=== PATIENT | male | born 1955 | race Caucasian/White ===

== ENCOUNTER 2019-05-15 16:56 | Inpatient (IN) | payer BC ==
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
[2019-05-15 18:54] LABS: #Basophils 0.1 thou/uL (0.0-0.2); #Eosinphils 0.3 thou/uL (0.0-0.7); #Lymphocytes 1.4 thou/uL (1.20-3.40); #Monocytes 0.9 thou/uL (0.11-0.59); #Neutrophils 11.6 thou/uL (1.40-6.50); %Basophils 0.6 % (0.0-1.0); %Eosinophils 1.8 % (0.0-10.0); %Lymphocytes 10.1 % (21.0-51.0); %Neutrophils 81.6 % (42.0-75.0); Hemoglobin 14.7 g/dL (14.0-18.0); Mean Corpuscular HGB CONC 34.5 g/dL (32.0-36.0); Mean Corpuscular Hemoglobin 32.8 pg (27.0-31.0); Mean Corpuscular Volume 94.9 fL (78.0-98.0); Mean Platelet Volume 7.9 fL (7.4-10.4); Platelet Count 212 thou/uL (130-400); RBC Distribution Width 12.3 % (11.5-14.5); Red Blood Cell (RBC) Count 4.49 mill/uL (4.70-6.10); White Blood Cell (WBC) Count 14.2 thou/uL (4.8-10.8)
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
[2019-05-15 19:16] LABS: ALT (SGPT) 17 U/L (8-55); AST (SGOT) 17 U/L (5-34); Acetaminophen Less than 6.0 mcg/mL (10.0-30.0); Albumin 3.8 g/dL (3.4-4.8); Alcohol Less than 10 mg/dL (Less than 10); Alkaline Phosphatase 52 U/L (40-110); Anion Gap 11 mmol/L (10-20); BUN (Urea Nitrogen) 21 mg/dL (8.4-25.7); Bilirubin, Total 0.3 mg/dL (0.2-1.2); CK (CPK) 239 U/L (30-200); Calc. Creatinine Clearance 0 mL/min (70-130); Calcium 8.7 mg/dL (7.8-10.44); Carbon Dioxide 22 mmol/L (23-31); Chloride 103 mmol/L (98-107); Estimated GFR-MDRD 49; Globulin 2.7 g/dL (2.4-3.5); Glucose 104 mg/dL (80-115); Lipase 36 U/L (8-78); Protein, Total 6.5 g/dL (5.8-8.1); Salicylate Less than 8.0 mg/dL (15.0-30.0); Sodium 132 mmol/L (136-145)
[2019-05-15] MEDS ORDERED: Acetaminophen 500 MG TAB ONE (19:17)
[2019-05-15 19:55] LABS: CKMB 2.4 ng/mL (0-6.6)
[2019-05-15] MEDS ORDERED: Aspirin Chewable 81 MG TAB ONE ×2 (20:08)
[2019-05-15] MEDS ORDERED: Ondansetron PF 4 MG/2 ML Vial IVP PRN (21:27)
[2019-05-15] MEDS ORDERED: Ondansetron ODT 4 MG TAB SL PRN (21:27)
[2019-05-15] MEDS ORDERED: HYDROcodone/Acetaminophen 5/325 mg Tablet PO PRN ×2 (21:27)
[2019-05-15] MEDS ORDERED: Acetaminophen 325 MG TAB PO PRN (21:27)
[2019-05-15 21:40] VITALS: BMI 27.7
[2019-05-15 22:11] LABS: Troponin I 0.042 ng/mL (< 0.028)
[2019-05-16 01:14] LABS: Lactic Acid 0.6 mmol/L (0.5-2.2)
[2019-05-16] MEDS ORDERED: HYDROcodone/Acetaminophen 5/325 mg Tablet PO PRN (01:16)
[2019-05-16] MEDS ORDERED: Acetaminophen 650 MG Suppository PR PRN (01:16)
[2019-05-16] MEDS ORDERED: Ondansetron ODT 4 MG TAB PO PRN (01:16)
[2019-05-16] MEDS ORDERED: Ondansetron PF 4 MG/2 ML Vial IVP PRN (01:16)
[2019-05-16] MEDS ORDERED: Acetaminophen 325 MG TAB PO PRN (01:16)
[2019-05-16] MEDS ORDERED: Senokot S 8.6-50 MG TAB PO PRN (01:16)
[2019-05-16 01:24] LABS: Troponin I 0.038 ng/mL (< 0.028)
[2019-05-16] MEDS: Sodium Chloride 0.9% 1,000 ML IV SCH ×2 (01:35→15:50)
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
[2019-05-16 04:14] LABS: Amphetamine Not Detected (NotDetected); Barbiturates Screen Not Detected (NotDetected); Benzodiazepine Screen Not Detected (NotDetected); Cocaine Metabolite Screen Not Detected (NotDetected); Medtox Control Line Valid? VALID (VALID); Medtox Reader # READER 1; Methadone Not Detected (NotDetected); Methamphetamine Not Detected (NotDetected); Opiate Screen Not Detected (NotDetected); Oxycodone Screen Not Detected (NotDetected); Phencyclidine (PCP) Not Detected (NotDetected); THC/Cannabinoid Screen Not Detected (NotDetected); Tricyclic Screen Not Detected (NotDetected)
[2019-05-16 05:33] LABS: Bilirubin Negative (Negative); Blood, Urine Negative (Negative); Clarity Clear (Clear); Glucose, Urine (Dipstick) Normal (Negative); Leukocyte Negative Leu/uL (Negative); Nitrite Negative (Negative); Protein, Urine (Dipstick) Negative (Neg-Trace); RBC/HPF 0-3 HPF (0-3); Squamous Epithelial None Seen HPF (0-3); Urobilinogen Normal mg/dL (Less than 2); WBC/HPF 0-3 HPF (0-3)
[2019-05-16 05:47] LABS: Bacteria/HPF 1+ HPF (None Seen)
[2019-05-16 05:49] LABS: Urine Culture Reflex No No
[2019-05-16 06:19] LABS: #Basophils 0.1 thou/uL (0.0-0.2); #Eosinphils 0.4 thou/uL (0.0-0.7); #Lymphocytes 1.9 thou/uL (1.20-3.40); #Monocytes 0.7 thou/uL (0.11-0.59); #Neutrophils 6.7 thou/uL (1.40-6.50); %Basophils 0.8 % (0.0-1.0); %Eosinophils 3.7 % (0.0-10.0); %Lymphocytes 19.4 % (21.0-51.0); %Neutrophils 69.1 % (42.0-75.0); Hemoglobin 14.5 g/dL (14.0-18.0); Mean Corpuscular HGB CONC 33.6 g/dL (32.0-36.0); Mean Corpuscular Hemoglobin 32.8 pg (27.0-31.0); Mean Corpuscular Volume 97.6 fL (78.0-98.0); Mean Platelet Volume 8.3 fL (7.4-10.4); Platelet Count 222 thou/uL (130-400); RBC Distribution Width 12.4 % (11.5-14.5); Red Blood Cell (RBC) Count 4.42 mill/uL (4.70-6.10); White Blood Cell (WBC) Count 9.7 thou/uL (4.8-10.8)
[2019-05-16 06:37] LABS: Anion Gap 7 mmol/L (10-20); BUN (Urea Nitrogen) 18 mg/dL (8.4-25.7); Calc. Creatinine Clearance 69 mL/min (70-130); Calcium 8.5 mg/dL (7.8-10.44); Carbon Dioxide 26 mmol/L (23-31); Chloride 106 mmol/L (98-107); Estimated GFR-MDRD 57; Glucose 93 mg/dL (80-115); Potassium 4.4 mmol/L (3.5-5.1); Sodium 135 mmol/L (136-145)
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
[2019-05-16] MEDS: Metoprolol Tartrate 25 MG TAB PO SCH ×2 (08:39→20:35)
--- NOTE | 2019-05-16 08:40 | ULT ---
CAROTID DUPLEX SONOGRAM: HISTORY: Syncope. Vascular disease. FINDINGS: RIGHT: Scattered areas of plaque. Color and spectral Doppler evaluation, peak systolic velocity of 78 cm/s, and IC to CC ratio of 1.0 suggests no hemodynamically significant stenosis within the extracranial r ight ICA. Right vertebral artery not visualized. LEFT: Scattered plaque. Color and spectral Doppler evaluation, peak systolic velocity of 267 cm/s, and IC to CC ratio of 3.3 suggests stenosis within the mid left cervical ICA to be in the range of 70-99%. Antegrade flow within the vertebral artery. IMPRESSION: 1. Atherosclerosis. Elevated peak systolic velocities within the mid left cervical internal carotid artery suggestive of high-grade stenosis. Please consider conventional or CT arteriography for bett er characterization. 2. Nonvisualization right vertebral artery. POS: TPC
[2019-05-16] MEDS ORDERED: Aspirin 81 mg Enteric Coated Tablet PO SCH (09:00)
[2019-05-16] MEDS ORDERED: Famotidine/PF 20 mg/2ml Vial SLOW IVP SCH ×2 (09:00→21:00)
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
--- NOTE | 2019-05-16 11:39 | MRI ---
MRI Brain WO Con: 05/16/2019 1:13 AM CLINICAL HISTORY: Seizure, collapse. COMPARISON: Head CT previous day's referenced FINDINGS: Extra axial spaces: Normal in size and morphology for the patient's age. Acute infarction: None. Ventricular system: Normal in size and morphology for the patient's age. Basal cisterns: Normal. Cerebral parenchyma: Minimal chronic ischemic disease of the cerebral white matter. Midline shift: None. Cerebellum: Normal. Brainstem: Normal. Paranasal sinuses:Scattered, mild mucosal thickening. IMPRESSION:No acute intracranial abnormality.
[2019-05-16] MEDS ORDERED: ISOVUE-370 76%-LOCM 1 ML ONE (12:45)
[2019-05-16] MEDS: HYDROcodone/Acetaminophen 5/325 mg Tablet PO PRN (14:43)
[2019-05-16] MEDS: Lisinopril 20 MG TAB PO SCH (20:32)
[2019-05-16] MEDS: Famotidine 20 MG TAB PO SCH (20:35)
[2019-05-16] MEDS: Atorvastatin Calcium 20 MG TAB PO SCH (20:35)
[2019-05-17] MEDS: HYDROcodone/Acetaminophen 5/325 mg Tablet PO PRN ×2 (04:33→17:11)
[2019-05-17] MEDS: Famotidine 20 MG TAB PO SCH ×2 (09:21→20:34)
[2019-05-17] MEDS: Aspirin 325 MG TAB PO SCH (09:21)
--- NOTE | 2019-05-17 10:15 | CT ---
CTA NECK WITH CONTRAST: Date: 05/17/19 Multiplanar reconstruction and 3D postprocessing performed according to angio protocol. INDICATION: Assess for carotid stenosis. Follow-up from carotid Doppler study which revealed increased velocities in the left internal carotid artery. FINDINGS: There is soft plaque, along with calcified plaque, in the aortic arch, and there is soft plaque which involves the origin of the right innominate artery. This does produce stenosis at the origin of the innominate artery of greater than 50%, which does indicate hemodynamic significant stenosis by NASCET criteria. Both common carotid arteries are patent with mild soft plaque. No significant common carot id artery stenosis. On the right, there is soft plaque and calcified plaque at the right bulb extending into the proximal right internal carotid artery. This results in mild stenosis which does not appear to be hemodynamic ally significant by NASCET criteria. On the left, calcified plaque and soft plaque are seen at the left bulb. Above the bulb is a focal ar ea of high grade stenosis in the left internal carotid artery secondary to soft plaque. There is also evidence of slight ulcerated plaque at this location. The degree of stenosis is estimated at greater than 80% diameter by NASCET criteria. The vertebral arteries are patent. There is a dominant left vertebral. Soft tissues appear unremarkable. Degenerative changes in the cervical spine. Lung apices appear clear. IMPRESSION: 1. High grade stenosis in the left internal carotid artery just above its origin. 2. Hemodynamically significant stenosis at the origin of the innominate artery at the aortic arch. POS: OFF
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
[2019-05-17] MEDS: Lisinopril 20 MG TAB PO SCH (20:34)
[2019-05-17] MEDS: Atorvastatin Calcium 20 MG TAB PO SCH (20:34)
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
[2019-05-18] MEDS: Metoprolol Tartrate 25 MG TAB PO SCH (04:38)
[2019-05-18] MEDS ORDERED: Gentamicin 80 MG/2 ML VIAL ONE (06:36)
[2019-05-18] MEDS ORDERED: Lidocaine 1% (PF) 30 ML VIAL ONE (06:36)
[2019-05-18] MEDS ORDERED: CEFAZOLIN 1 GM VIAL ONE (06:36)
[2019-05-18] MEDS ORDERED: Midazolam HCl 2 mg/2 ml Vial ONE (07:18)
--- NOTE | 2019-05-18 09:12 | RAD ---
EXAM: Single view of the chest HISTORY: Status post pacemaker placement COMPARISON: 05/15/2019 FINDINGS: Single view of the chest shows a normal sized cardiomediastinal silhouette. The patient is status post sternotomy. There is a left subclavian pacemaker with its leads in the right atrium and ventricle. No pneumothorax is seen. There is no evidence of consolidation, mass, or pleural effu ayala. The bones are unremarkable. IMPRESSION: Status post pacemaker placement without evidence of complication.
[2019-05-18] MEDS: Famotidine 20 MG TAB PO SCH (10:34)
[2019-05-18] MEDS: Aspirin 325 MG TAB PO SCH (10:34)
--- NOTE | 2019-05-18 11:48 | PDOC.HOSPP ---
- Subjective Encounter Date: 05/18/19 Encounter Time: 11:46 Subjective: doing well, eager to go home. Discussed about no driving for atleast one month and cleared by the cardiology - Objective Vital Signs & Weight: Vital Signs (12 hours) Temp Pulse Resp BP Pulse Ox 05/18/19 09:40 95 05/18/19 08:39 98.3 F 61 16 128/65 96 05/18/19 04:00 98.2 F 60 16 104/61 96 05/17/19 23:52 98.5 F 50 L 16 105/68 95 Weight Weight 177 lb 4.8 oz I&O: 05/17/19 05/18/19 05/19/19 06:59 06:59 06:59 Intake Total 2619 960 Output Total 2300 Balance 319 960 Result Diagrams: 05/16/19 05:31 05/16/19 05:31 Hospitalist ROS - Medication Medications: Active Medications Generic Name Dose Route Start Last Admin Trade Name Freq PRN Reason Stop Dose Admin Acetaminophen 650 mg 05/16/19 01:16 05/17/19 20:34 Tylenol PO 650 mg Q4H PRN Administration Headache/Fever/Mild Pain (1-3) Hydrocodone Bitart/Acetaminophen 1 tab 05/16/19 01:16 05/16/19 08:39 [place] 5/325 PO 1 tab Q4H PRN Administration Moderate Pain (4-6) Hydrocodone Bitart/Acetaminophen 2 tab 05/16/19 01:16 05/17/19 17:11 [place] 5/325 PO 2 tab Q4H PRN Administration Severe Pain (7-10) Aspirin 325 mg 05/17/19 09:00 05/18/19 10:34 Aspirin PO 325 mg DAILY HERBERT Administration Atorvastatin Calcium 20 mg 05/16/19 21:00 05/17/19 20:34 Lipitor PO 20 mg HS HERBERT Administration Famotidine 20 mg 05/16/19 21:00 05/18/19 10:34 Pepcid PO 20 mg BID HERBERT Administration Lisinopril 20 mg 05/16/19 21:00 05/17/19 20:34 Zestril PO Not Given HS HERBERT Sodium Chloride 10 ml 05/17/19 21:00 05/18/19 10:39 Flush - Normal Saline IVF 10 ml Q12HR HERBERT Administration - Exam General Appearance: NAD, awake alert, ill appearing Eye: PERRL, anicteric sclera, scleral icterus Neck: supple, symmetric, no JVD, no thyromegaly, no lymphadenopathy, no carotid bruit, JVD Heart: RRR, no murmur, no gallops, no rubs, normal peripheral pulses, irregular , diminshed peripheral pulses, murmur present, II/IV, III/IV Respiratory: CTAB, no wheezes, no rales, no ronchi, normal chest expansion, no tachypnea, normal percussion, rales, rhonchi, tachypneic, wheezes Gastrointestinal: soft, non-tender, non-distended, normal bowel sounds, no palpable masses, no hepatomegaly, no splenomegaly, no bruit, no guarding, no rigidity, tender to palpation, distended, diminished bowl sounds, voluntary guarding Extremities: no cyanosis, no clubbing, no edema, 1+ LE edema, 2+ LE edema, clubbing Skin: normal turgor, no lesions, no rashes, tenting Hosp A/P (1) Syncope Code(s): R55 - SYNCOPE AND COLLAPSE Status: Acute - Plan restart metaprolol as pacemaker has been placed. nicotin patch. D/c home when vleared by cardiology.
[2019-05-18 12:14] VITALS: TEMP 97.8
--- NOTE | 2019-05-18 14:09 | CCL ---
CARDIOLOGY PROCEDURE NOTE PACEMAKER INSERTION: This is a 63-year-old gentleman with sick sinus syndrome and severe bradycardia and syncopal episodes . He was advised to undergo a dual chamber pacemaker insertion. He was taken to the cardiac flower shop laborer/designer, where he was prepped and draped in the usual sterile fashion. U sing a left subclavian approach, the pacemaker was easily inserted, without difficulties or complicat ions. The full dictated note can be found in the chart. He was given 1 mg of IV Versed for conscious sedation throughout the procedure and was monitored by a n independent observer present for heart rate, blood pressure, and O2 saturation, which remained stab le throughout the procedure. He was implanted with a dual chamber pacemaker from [employer], an Missy XT, with two screw-in leads, one in the atrium and one in the ventricle. The pacemaker was set with the upper rate at 140 and lowe r rate set at 60. There were no difficulties or complications encountered.
[2019-05-18 17:14] VITALS: BP 113/68
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
--- NOTE | 2019-05-18 20:38 | EKG ---
Test Reason : POST PACEMAKER INSER Blood Pressure : / mmHG Vent. Rate : 062 BPM Atrial Rate : 062 BPM P-R Int : 148 ms QRS Dur : 090 ms QT Int : 420 ms P-R-T Axes : 075 039 077 degrees QTc Int : 426 ms Normal sinus rhythm Normal ECG When compared with ECG of 15-MAY-2019 18:36, (Unconfirmed) No significant change was found Confirmed by SUNDAR DOUGLAS, . SFany ([id number]) on 05/18/2019 8:38:01 PM Referred By: SABA Confirmed By:DR. Jacque KWOK MD
[2019-05-19] MEDS ORDERED: Nicotine 21 MG PATCH TD SCH (09:00)
--- NOTE | 2019-05-19 09:27 | DIS ---
DATE OF ADMISSION: 05/15/2019 DATE OF DISCHARGE: 05/18/2019 DISCHARGE DIAGNOSES: Status post pacemaker, status post syncope, and symptomatic bradycardia. CONSULTANTS ON THE CASE: 1. Cardiology, Dr. Zepeda. 2. Ophthalmology, Dr. Velasquez. HOSPITAL COURSE: The patient has been hospitalized. The patient exhibited bradycardia 40, metoprolol was on hold, and we went ahead and consulted Cardiology, Dr. Zepeda, subsequently recommended pacemaker placement and it was replaced successfully on the morning of 05/18/2019. The patient tolerated the procedure very well and metoprolol was restarted. The patient also has been a smoker and we started nicotine patch as well. As the patient continued to improve, instantly, we found that the patient has a mild injury on the right eye. Ophthalmology consultation was obtained, Dr. Velasquez evaluated. Further recommendation as per Dr. Velasquez. The patient's condition has been improved, ambulating, and tolerating diet well. It has been concluded to transfer the patient to outpatient care to follow up with PCP and Dr. Zepeda. DISCHARGE INSTRUCTIONS: Discharge home. DIET: Cardiac diet. ACTIVITY: As tolerated. DISCHARGE MEDICATIONS: As per reconciliation sheet, and we added nicotine patch once a day for total 30. We counseled the patient to quit smoking and we strictly instructed not to drive until Cardiology clears, 30 days no driving. CONDITION: Discussed with the patient at length and spoke to the as well. Job ID: [id number]
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
--- NOTE | 2019-05-19 15:22 | EKG ---
Test Reason : Blood Pressure : / mmHG Vent. Rate : 077 BPM Atrial Rate : 077 BPM P-R Int : 144 ms QRS Dur : 090 ms QT Int : 388 ms P-R-T Axes : 071 020 069 degrees QTc Int : 439 ms Normal sinus rhythm Normal ECG Confirmed by CASEY DOUGLAS, ULISES ([id number]), telegraph editor CHLOÉ ARANA ([id number]) on 05/19/2019 3:22:04 PM Referred By: Confirmed By:ULISES PEÑA MD
== END 2019-05-18 18:09 | disposition home or self-care (01) | DRG 244 ==
LOC: ERS 16:56 → OBSVTOIN 19:48 → 2SW 19:48 → 2NO 05-17 20:29
PROVIDERS: ADMIT Family Medicine; ATTEND Family Medicine
PROC: 0JH606Z Insertion of Pacemaker, Dual Chamber into Chest Subcutaneous Tissue and Fascia, Open Approach (ICD-10-PCS; principal; 2019-05-18)
PROC: 02HK3JZ Insertion of Pacemaker Lead into Right Ventricle, Percutaneous Approach (ICD-10-PCS; 2019-05-18)
PROC: 02H63JZ Insertion of Pacemaker Lead into Right Atrium, Percutaneous Approach (ICD-10-PCS; 2019-05-18)
DX: R55 Syncope and collapse (principal); I65.22 Occlusion and stenosis of left carotid artery; I25.10 Atherosclerotic heart disease of native coronary artery without angina pectoris; E78.00 Pure hypercholesterolemia, unspecified; I10 Essential (primary) hypertension; S00.11XA Contusion of right eyelid and periocular area, initial encounter; F17.210 Nicotine dependence, cigarettes, uncomplicated; Z86.73 Personal history of transient ischemic attack (TIA), and cerebral infarction without residual deficits; Z79.899 Other long term (current) drug therapy; Z95.1 Presence of aortocoronary bypass graft; V49.40XA Driver injured in collision with unspecified motor vehicles in traffic accident, initial encounter
CPT/HCPCS: 33249; 36415; 70450; 70486; 70498; 70551; 71045; 71260; 72125; 80048; 80053; 80306; 80307; 81001; 82550; 82553; 83605; 83690; 83735; 83880; 84146; 84484; 85025; 93005; 93010; 93306; 93798; 93880; 96360; 99152; 99153; C1785; C1898; G0390; J0690; J1580; J2001; J2250; Q9966; S0028

== ENCOUNTER 2020-03-18 12:24 | Observation (INO) | payer SELFPAY ==
[2020-03-18 14:03] LABS: Troponin I Less than 0.010 ng/mL (< 0.028)
[2020-03-18] MEDS ORDERED: Acetaminophen 500 MG TAB ONE (14:51)
[2020-03-18 16:44] VITALS: BMI 25.8
[2020-03-18] MEDS ORDERED: Nitroglycerin 0.4 MG TAB (25 Tab Bottle) PO PRN (17:53)
[2020-03-18 18:59] LABS: Troponin I Less than 0.010 ng/mL (< 0.028)
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
[2020-03-18] MEDS ORDERED: Atorvastatin Calcium 20 MG TAB PO SCH (21:00)
[2020-03-18] MEDS ORDERED: Acetaminophen 325 MG TAB PO PRN (21:04)
[2020-03-18] MEDS ORDERED: Tamsulosin HCl 0.4 MG CAP PO SCH (21:30)
[2020-03-19 05:06] LABS: Cardiac Risk 4.9 (Less than 4.5)
[2020-03-19 08:31] LABS: #Basophils 0.1 thou/uL (0.0-0.2); #Eosinphils 0.4 thou/uL (0.0-0.7); #Lymphocytes 1.7 thou/uL (1.20-3.40); #Monocytes 0.6 thou/uL (0.11-0.59); #Neutrophils 9.4 thou/uL (1.40-6.50); %Basophils 0.5 % (0.0-1.0); %Lymphocytes 13.6 % (21.0-51.0); %Monocytes 5.2 % (0.0-10.0); %Neutrophils 77.6 % (42.0-75.0); Hemoglobin 14.1 g/dL (14.0-18.0); Mean Corpuscular HGB CONC 33.3 g/dL (32.0-36.0); Mean Corpuscular Hemoglobin 32.4 pg (27.0-31.0); Mean Corpuscular Volume 97.3 fL (78.0-98.0); Mean Platelet Volume 8.2 fL (7.4-10.4); Platelet Count 177 thou/uL (130-400); RBC Distribution Width 12.2 % (11.5-14.5); Red Blood Cell (RBC) Count 4.34 mill/uL (4.70-6.10); White Blood Cell (WBC) Count 12.1 thou/uL (4.8-10.8)
[2020-03-19 08:47] LABS: Anion Gap 11 mmol/L (10-20); BUN (Urea Nitrogen) 19 mg/dL (8.4-25.7); Calc. Creatinine Clearance 71 mL/min (70-130); Calcium 8.7 mg/dL (7.8-10.44); Carbon Dioxide 24 mmol/L (23-31); Chloride 105 mmol/L (98-107); Estimated GFR-MDRD 64; Glucose 88 mg/dL (80-115); Potassium 4.5 mmol/L (3.5-5.1); Sodium 135 mmol/L (136-145)
[2020-03-19] MEDS ORDERED: Aspirin 325 mg Enteric Coated Tablet PO SCH (09:00)
[2020-03-19] MEDS ORDERED: Enoxaparin Sodium 40 MG/0.4 ML SYRINGE SC SCH (09:00)
[2020-03-19] MEDS ORDERED: Nicotine 21 MG PATCH TD SCH (09:00)
[2020-03-19] MEDS ORDERED: ADENOSINE 60 MG/20 ML VIAL ONE (11:45)
--- NOTE | 2020-03-19 13:46 | NM ---
Radionucleotide stress and rest myocardial perfusion scan with CT attenuation correction and SPECT im aging HISTORY: Chest pain. FINDINGS: Adenosine protocol. There is heterogeneous uptake of radiotracer throughout the left ventri cular myocardium. No focal perfusion defect or reversibility. QGS analysis of gated SPECT images shows diminished motion of the septum with abnormal movement of th e distal portion of the anteroseptal wall. Ejection fraction calculated at 59%. IMPRESSION : No scintigraphic evidence of ischemia. Dyskinetic motion of the distal septum likely related to prior CABG. Preserved LVEF.
--- NOTE | 2020-03-19 15:50 | CT ---
CT cervical spine without contrast: Multiple axial tones obtained through cervical spine with multiplanar reconstruction. INDICATIONS: Cervical radiculopathy. COMPARISON: none FINDINGS: Cervical vertebra maintain height and alignment. Moderate degenerative changes at C5 and C6. Loss of disc space at C5-6 and C6-7 with degenerative dis c change. Anterior osteophytes and posterior spondylosis at these levels. C2-3: Mild central disc bulge abuts the cord. No central canal or foraminal stenosis. C3-4: Mild broad-based disc bulge abuts the anterior cord. No foraminal stenosis. C4-5: Central disc bulge abuts the anterior cord. No foraminal stenosis. C5-6: Disc bulge and spondylosis abut the anterior cord. Mild foraminal narrowing due to uncinate hyp ertrophy. C6-7: Posterior spondylosis abut the anterior cord. Bilateral foraminal encroachment due to uncinate hypertrophy. C7-T1: Abnormal signal in the anterior spinal canal suggest focal disc protrusion impinging on the co rd. This is difficult to adequately evaluate due to artifact from the shoulders. IMPRESSION: Posterior disc bulge and spondylosis abut the cord at multiple levels. There is evidence of a disc pr otrusion at C7-T1 impinging on the cord and compressing the cord. This is suboptimally evaluated due to artifact. Recommend MRI cervical spine.
[2020-03-19 16:53] VITALS: BP 140/74; TEMP 97.8
[2020-03-19] MEDS ORDERED: methylPREDNISolone Sod Succ 40 MG VIAL IVP SCH ×2 (17:00→17:15)
--- NOTE | 2020-03-19 17:02 | PDOC.HOSPP ---
- Subjective Encounter Date: 03/19/20 Encounter Time: 17:01 Subjective: dominant problem was left arm symptoms - Objective Vital Signs & Weight: Vital Signs (12 hours) Temp Pulse Resp BP Pulse Ox 03/19/20 16:52 97.8 F 61 14 140/74 96 03/19/20 13:20 97.4 F L 61 16 149/70 H Weight Weight 165 lb I&O: 03/18/20 03/19/20 03/20/20 06:59 06:59 06:59 Intake Total 370 Balance 370 Result Diagrams: 03/19/20 08:14 03/19/20 08:15 Hospitalist ROS - Medication Medications: Active Medications Generic Name Dose Route Start Last Admin Trade Name Freq PRN Reason Stop Dose Admin Acetaminophen 650 mg 03/18/20 21:04 03/18/20 21:29 Tylenol PO 650 mg Q4H PRN Administration Headache/Fever or Pain Atorvastatin Calcium 20 mg 03/18/20 21:00 03/18/20 21:29 Lipitor PO 20 mg HS HERBERT Administration Metoprolol Succinate 25 mg 03/18/20 21:00 03/19/20 14:14 Toprol Xl PO 25 mg BID HERBERT Administration Nicotine 21 mg 03/19/20 09:00 03/19/20 14:14 Nicoderm Patch TD 21 mg DAILY HERBERT Administration - Exam General Appearance: awake alert Neck: no JVD Heart: RRR, no murmur Respiratory: CTAB Gastrointestinal: soft, normal bowel sounds Extremities: no edema Neurological - other findings: weak left biceps, pain in neck with strength testing Hosp A/P (1) Cervical radiculopathy at C7 Code(s): M54.12 - RADICULOPATHY, CERVICAL REGION Status: Acute (2) Dyslipidemia Code(s): E78.5 - HYPERLIPIDEMIA, UNSPECIFIED Status: Chronic (3) Pacemaker Code(s): Z95.0 - PRESENCE OF CARDIAC PACEMAKER Status: Chronic (4) CAD (coronary atherosclerotic disease) Code(s): I25.10 - ATHSCL HEART DISEASE OF [place] CORONARY ARTERY W/O ANG PCTRS Status: Acute Qualifiers: Coronary Disease-Associated Artery/Lesion type: [place] artery [place] vs. transplanted heart: [place] heart Associated angina: without angina Qualified Code(s): I25.10 - Atherosclerotic heart disease of [place] coronary artery without angina pectoris (5) HTN (hypertension) Code(s): I10 - ESSENTIAL (PRIMARY) HYPERTENSION Status: Acute Qualifiers: Hypertension type: essential hypertension Qualified Code(s): I10 - Essential (primary) hypertension - Plan stress test- no reversible defect c spine CT- multilevel lesions NS will see - probable myelogram, start steroids hold ASA, lovenox
[2020-03-19] MEDS ORDERED: Bacteriostatic Water 30 ML VIAL FS PRN (17:04)
--- NOTE | 2020-03-19 18:31 | DIS ---
DATE OF ADMISSION: 03/18/2020 DATE OF DISCHARGE: 03/19/2020 PRIMARY CARE PHYSICIAN: None. DISPOSITION: Discharged home. FINAL DIAGNOSES: Left arm pain, cervical radiculopathy, coronary artery disease with remote coronary artery bypass graft, hyperlipidemia, and tobacco abuse. DISCHARGE MEDICATIONS: 1. Gabapentin 100 mg twice a day. 2. Medrol Dosepak, start 03/20/2020. 3. Flomax 0.4 mg at bedtime. 4. Metoprolol 25 mg b.i.d. 5. Nicoderm patch. 6. Atorvastatin 20 mg p.o. at bedtime. ALLERGIES: NO KNOWN DRUG ALLERGIES. PENDING AT TIME OF DISCHARGE: Nothing. CODE STATUS: Full. HOSPITAL COURSE: The patient was placed in the hospital with chest pain, arm pain, and history of coronary artery bypass graft. Cardiac enzymes were normal. Nuclear medicine stress test demonstrated no reversible defect. After I examined him, he had a mildly weak left triceps and pain on strength testing on left triceps. Because of the left arm pain and left arm numbness, CAT scan was done, which showed multilevel cervical spine changes from C2 to T1, most prominent at C6-C7 and C7-T1, abnormal signal in anterior spinal canal suggesting focal disk protrusion and pinning on the cord. Lilly Ivy, Neurosurgery with Dr. Leo Massey was consulted. She looked at the MRI, suggested taking him off aspirin and enoxaparin, placing him on Medrol Dosepak starting tomorrow after a bolus of steroids tonight, gabapentin for pain, to be discharged and to follow up with her at the [facility] at 1:00 p.m. tomorrow. He is agreeable with that being discharged. Job ID: [id number]
[2020-03-19] MEDS ORDERED: Tamsulosin HCl 0.4 MG CAP PO SCH (21:00)
== END 2020-03-19 18:57 | disposition home or self-care (01) ==
LOC: ERS 12:24 → 2NO 15:55
PROVIDERS: ADMIT Internal Medicine; ATTEND Internal Medicine
DX: M50.123 Cervical disc disorder at C6-C7 level with radiculopathy (principal); M47.22 Other spondylosis with radiculopathy, cervical region; M79.602 Pain in left arm; I25.10 Atherosclerotic heart disease of native coronary artery without angina pectoris; E78.5 Hyperlipidemia, unspecified; F17.210 Nicotine dependence, cigarettes, uncomplicated; I25.2 Old myocardial infarction; I10 Essential (primary) hypertension; R07.89 Other chest pain; Z86.73 Personal history of transient ischemic attack (TIA), and cerebral infarction without residual deficits; Z79.899 Other long term (current) drug therapy; Z95.0 Presence of cardiac pacemaker; Z95.1 Presence of aortocoronary bypass graft
CPT/HCPCS: 36415; 72125; 78452; 80048; 80061; 85025; 93005; 93017; 94760; 96372; 96374; A9500; G0378; J0153; J1650; J2920

== ENCOUNTER 2022-01-01 11:29 | Emergency (ER) | payer OTHER ==
[2022-01-01] MEDS ORDERED: Fentanyl 100 MCG/2 ML VIAL ONE (11:37)
[2022-01-01 11:58] LABS: #Basophils 0.1 thou/uL (0.0-0.2); #Eosinphils 0.5 thou/uL (0.0-0.7); #Lymphocytes 2.9 thou/uL (1.20-3.40); #Monocytes 0.8 thou/uL (0.11-0.59); %Basophils 0.7 % (0.0-1.0); %Lymphocytes 23.4 % (21.0-51.0); %Monocytes 6.4 % (0.0-10.0); %Neutrophils 65.4 % (42.0-75.0); Hemoglobin 14.2 g/dL (14.0-18.0); Mean Corpuscular Hemoglobin 33.3 pg (27.0-31.0); Mean Platelet Volume 8.3 fL (7.4-10.4); Platelet Count 217 thou/uL (130-400); RBC Distribution Width 11.9 % (11.5-14.5); Red Blood Cell (RBC) Count 4.27 mill/uL (4.70-6.10); White Blood Cell (WBC) Count 12.2 thou/uL (4.8-10.8)
[2022-01-01 12:16] LABS: ALT (SGPT) 18 U/L (8-55); AST (SGOT) 20 U/L (5-34); Alkaline Phosphatase 56 U/L (40-110); Anion Gap 13 mmol/L (10-20); BUN (Urea Nitrogen) 21 mg/dL (8.4-25.7); Bilirubin, Total 0.6 mg/dL (0.2-1.2); CK (CPK) 227 U/L (30-200); Calc. Creatinine Clearance 0 mL/min (70-130); Carbon Dioxide 22 mmol/L (23-31); Chloride 104 mmol/L (98-107); Globulin 2.8 g/dL (2.4-3.5); Glucose 112 mg/dL (80-115); Lipase 55 U/L (8-78); Magnesium 2.1 mg/dL (1.6-2.6); Potassium 4.2 mmol/L (3.5-5.1); Protein, Total 6.8 g/dL (5.8-8.1); Sodium 135 mmol/L (136-145)
[2022-01-01] MEDS ORDERED: Ketorolac Tromethamine 30 MG/ML VIAL ONE (13:25)
[2022-01-01] MEDS ORDERED: Iopamidol 370 76% 100 ML VIAL ONE (13:37)
[2022-01-01] MEDS ORDERED: Acetaminophen 500 MG TAB ONE (13:55)
== END 2022-01-01 13:57 | disposition home or self-care (01) ==
LOC: ERS 11:29
DX: S06.9X9A Unspecified intracranial injury with loss of consciousness of unspecified duration, initial encounter (principal); S20.219A Contusion of unspecified front wall of thorax, initial encounter; S30.1XXA Contusion of abdominal wall, initial encounter; S00.81XA Abrasion of other part of head, initial encounter; M54.6 Pain in thoracic spine; M25.511 Pain in right shoulder; M25.512 Pain in left shoulder; V43.62XA Car passenger injured in collision with other type car in traffic accident, initial encounter
CPT/HCPCS: 36415; 70450; 71045; 71275; 72125; 74174; 80053; 82550; 83605; 83690; 83735; 83880; 84484; 85025; 86850; 86900; 86901; 93005; 94760; 96374; 96375; G0390; J1885; J3010; Q9967